=== PATIENT | male | born 1950 | race Caucasian/White ===

== ENCOUNTER 2021-06-08 11:52 | Outpatient (CLI) | payer MEDICARE, SELFPAY ==
[2021-06-08 13:47] LABS: Basophils Absolute Auto 0.1 K/mm3 (0.0-0.1); Basophils Percent Auto 1.1 % (0.2-1.2); Eosinophils Absolute Auto 0.2 K/mm3 (0-0.3); Eosinophils Percent Auto 2.1 % (0-4.4); Hematocrit 50.4 % (42.0-52.0); Hemoglobin 17.3 g/dL (14.0-18.0); Immature Granulocyte Absolute 0.03 K/mm3 (0.00-0.031); Immature Granulocyte Percent A 0.4 % (0-0.5); Lymphocytes Absolute Auto 2.46 K/mm3 (0.9-3.2); Lymphocytes Percent Auto 32.4 % (18.3-44.2); Mean Corpuscular HGB Conc 34.3 g/dl (32-36); Mean Corpuscular Hemoglobin 34.5 pg (26-34); Mean Corpuscular Volume 100.4 fl (80-100); Mean Platelet Volume 8.8 fl (7.4-10.4); Monocytes Absolute Auto 0.7 K/mm3 (0.1-0.6); Monocytes Percent Auto 9.2 % (2.6-8.5); Neutrophils Absolute Auto 4.2 K/mm3 (1.3-6.7); Neutrophils Percent Auto 54.8 % (45.5-73.1); Platelet Count Result 241 k/mm3 (150-375); Red Blood Count 5.02 M/mm3 (4.6-6.20); Red Cell Distribution Width 13.3 % (11.5-14.5); White Blood Count 7.6 K/mm3 (4.5-10.0)
[2021-06-08 14:16] LABS: INR 0.9; Prothrombin Time 11.9 Seconds (11.1-14.7)
[2021-06-08 14:17] LABS: Partial Thromboplastin Time 22.7 SECONDS (22.3-36.8)
== END 2021-06-08 11:53 | disposition home or self-care (01) ==
LOC: ANHSURGERY 12:06
PROVIDERS: PCP Internal Medicine; Visit Provider Urology
DX: Z01.818 Encounter for other preprocedural examination (principal); C61 Malignant neoplasm of prostate
CPT/HCPCS: 36415; 85025; 85610; 85730; 86850; 86900; 86901; 87086

== ENCOUNTER 2021-06-17 15:36 | Inpatient (IN) | payer MEDICARE, SELFPAY ==
[2021-06-08 12:32] VITALS: BP 154/87; PULSE 72; RESP 18; TEMP 36.8; O2SAT 95; BMI 28.9
--- NOTE | 2021-06-16 09:11 | WPDANESEPPF ---
Anes - Initial Pre Proc Eval Procedure: Operation Date: 06/17/21 07:30 Proposed Procedures p Robotic Prostatectomy with Bilateral Pelvic Lymph Node Dissection - Williams Arguello MD Date/Time: 06/16/21 09:11 Surgeon: Williams Arguello MD Pre Op Diagnosis: prostate CA Patient Data Age: 70 Gender: M Height: 1.7 m Weight: 83.7 kg Last Vital Signs Temp 36.8 C 06/08/21 12:32 Pulse 72 06/08/21 12:32 Resp 18 06/08/21 12:32 BP 154/87 H 06/08/21 12:32 Pulse Ox 95 06/08/21 12:32 Allergies Allergy/AdvReac Type Severity Reaction Status Date / Time penicillin G Allergy Intermediate Rash Verified 06/17/21 06:31 Home Medications Medication Instructions Recorded Confirmed Type allopurinol 100 mg PO DAILY 06/08/21 06/17/21 History aspirin [Aspir-81] 81 mg PO DAILY 06/08/21 06/17/21 History atorvastatin 20 mg PO HS 06/08/21 06/17/21 History carvedilol 3.125 mg PO BID 06/08/21 06/17/21 History cholecalciferol (vitamin D3) 50 mcg PO DAILY 06/08/21 06/17/21 History dapagliflozin [Farxiga] 10 mg PO QAM 06/08/21 06/17/21 History furosemide 20 mg PO QAM 06/08/21 06/17/21 History glimepiride 2 mg PO QAM 06/08/21 06/17/21 History lisinopril 40 mg PO QAM 06/08/21 06/17/21 History metformin 1,000 mg PO BID 06/08/21 06/17/21 History omega-3 fatty acids-vitamin E 1 cap PO DAILY 06/08/21 06/17/21 History [Fish Oil] tamsulosin 0.4 mg PO QAM 06/08/21 06/17/21 History vit C,W-Zz-iruit-lutein-zeaxan 1 tablet PO BID 06/08/21 06/17/21 History [PreserVision AREDS-2] vitamin E 1,000 unit PO DAILY 06/08/21 06/17/21 History Patient hx anesthesia problems: none Family hx anesthesia problems: none PMFSH Past Medical History Medical History (Updated 06/17/21 @ 06:47 by Aidan Pascual MD) Diabetes type 2, controlled Hyperlipidemia Hypertension Prostate CA Social History Social History Smoking status: Never smoker Alcohol intake: never Substance use: never Living arrangements: with family Additional living arrangements comments: Spiritual care concerns: No Anes - Eval Final PreProcedure Day of Procedure 06/16/21 09:11 Patient weight: overweight Heart: regular rate and rhythm Lungs: clear to auscultation and normal air movement Airway: Mallampati scale class II Neurological: alert and oriented Last oral intake: >/= 8 hours ASA classification: III Emergent: no Anesthetic plan: proceed Anesthesia type and monitoring: general ETT and standard monitoring Informed Consent: The patient's anesthetic plan and its attendant risks and benefits were discussed with the patient/family/POA. Questions were solicited and answers provided to the satisfaction of the patient/family/POA.
[2021-06-17] VITALS (20 sets, daily range): BP systolic 122–167; BP diastolic 69–90; PULSE 58–111; RESP 13–27; TEMP 35.9–36.7; O2SAT 94–100
--- NOTE | 2021-06-17 06:45 | PM.IMHP ---
H&P: HPI History of Present Illness Date/Time: 06/17/21 06:45 Pleasant 70-year-old gentleman who presented in January 2021 with PSA of 6.43. Prostate ultrasound and biopsy revealed a 35.8 g prostate with 7 of 12 cores demonstrating adenocarcinoma [place] 3+3=6 in 4+3=7. Staging CT scan of the abdomen and pelvis with contrast and bone scan showed no evidence of metastatic disease. consultation was undertaken and options including active surveillance, radiation therapy in its various forms, androgen deprivation therapy and radical prostatectomy were discussed. Patient elected for the latter is aware the risk including, but not limited to, adverse cardiopulmonary events, rectal injury, failure to control his cancer, urinary incontinence and erectile dysfunction. Chief Complaint: Prostate cancer Review of Systems Cardiovascular: Cardiovascular: Denies chest pain, Denies lightheadedness, Denies palpitations and Denies dyspnea Respiratory: Respiratory: Denies dyspnea Gastrointestinal: Gastrointestinal: Denies diarrhea, Denies nausea and Denies vomiting Genitourinary: Genitourinary: Denies hematuria and Denies dysuria Endocrine: Endocrine: Denies palpitations [facility] Past Medical History Medical History Diabetes type 2, controlled Hyperlipidemia Hypertension Prostate CA Social History Social History Smoking status: Never smoker Alcohol intake: never Substance use: never Living arrangements: with family Additional living arrangements comments: Spiritual care concerns: No Meds Home Medications and Allergies Home Medications Medication Instructions Recorded Confirmed Type allopurinol 100 mg PO DAILY 06/08/21 06/17/21 History aspirin [Aspir-81] 81 mg PO DAILY 06/08/21 06/17/21 History atorvastatin 20 mg PO HS 06/08/21 06/17/21 History carvedilol 3.125 mg PO BID 06/08/21 06/17/21 History cholecalciferol (vitamin D3) 50 mcg PO DAILY 06/08/21 06/17/21 History dapagliflozin [Farxiga] 10 mg PO QAM 06/08/21 06/17/21 History furosemide 20 mg PO QAM 06/08/21 06/17/21 History glimepiride 2 mg PO QAM 06/08/21 06/17/21 History lisinopril 40 mg PO QAM 06/08/21 06/17/21 History metformin 1,000 mg PO BID 06/08/21 06/17/21 History omega-3 fatty acids-vitamin E 1 cap PO DAILY 06/08/21 06/17/21 History [Fish Oil] tamsulosin 0.4 mg PO QAM 06/08/21 06/17/21 History vit C,E-Ph-cbgmn-lutein-zeaxan 1 tablet PO BID 06/08/21 06/17/21 History [PreserVision AREDS-2] vitamin E 1,000 unit PO DAILY 06/08/21 06/17/21 History Allergies Allergy/AdvReac Type Severity Reaction Status Date / Time penicillin G Allergy Intermediate Rash Verified 06/17/21 06:31 Exam Const: General: no acute distress Resp: Effort & Inspection: normal respiratory effort GI: Inspection: non-distended GI Palp: No abdominal tenderness and No Guarding due to palpation present (GI) Auscultation: normal bowel sounds Assessment and Plan Assessment and plan (1) Prostate cancer: Code(s): C61 - Malignant neoplasm of prostate Status: Acute Assessment and Plan: Robotic assisted laparoscopic radical prostatectomy with bilateral pelvic lymphadenectomy.
--- NOTE | 2021-06-17 06:48 | WPDHPUPDATE1 ---
History and Physical Update Update Date/Time: 06/17/21 06:48 History and Physical has been reviewed, including an updated exam of the patient. There are NO changes in the patient's condition. Risks, benefits, and alternatives have been discussed and questions answered. Patient agrees to proceed with procedure.
[2021-06-17 06:56] LABS: Glucose Point of Care 173 mg/dl (65-105)
[2021-06-17] MEDS: LACTATED RINGERS 1,000 ML 30 ML IV CONT ×3 (07:09→13:53)
[2021-06-17] MEDS: ceFAZolin 2 GM/D5W 50 ML 2 GM/50 ML BAG IVPB (07:23)
[2021-06-17] MEDS: ceFAZolin SODIUM 1 GM VIAL IV PUSH (11:19)
--- NOTE | 2021-06-17 11:30 | W.PM.PROC2 ---
Procedure Note - Detailed Date of Procedure 06/17/21 Pre-op Diagnosis Prostate CA Post-op Diagnosis same Procedure Performed Robotic-assisted, bilateral nerve-sparing radical prostatectomy, bilateral pelvic lymphadenectomy Surgeon Aidan Pascual MD Wood Treating Inspector Maya Arguello MD Anesthesia general Description of Procedure The patient was brought to the operative suite, where he was prepped and draped in routine sterile fashion while in a dorsal lithotomy, deep Trendelenburg position. A supraumbilical 10 mm trocar was placed after insufflation of the abdomen with a Veress needle. Three robotic ports were then placed under direct vision. Two of these were placed in the right lower quadrant - 10 cm and 20 cm lateral to, and in line with, the umbilicus. A third robotic trocar was placed 10 cm to the left of the umbilicus, and 20 cm to the left of the umbilicus, a 12 mm standard laparoscopic trocar was placed to be used as an life enrichment assistant port. Lastly, a 5 mm trocar was placed in the left upper quadrant midway between the umbilicus and the left robotic trocar. Attention was then turned to the prostatectomy. I opted for a posterior approach in this patient. An incision was made in the parietal peritoneum along the posterior bladder/posterior prostate about 2 cm above the reflection of the peritoneum over the anterior rectum. The seminal vesicles and vas deferens were immediately identified. Dissection is undertaken in a fashion so as to avoid electrocautery as much as possible, particularly near the tips of the seminal vesicles. Dissection was also carried out in the midline so as to avoid any encounters with the ureters. The vas deferens and the seminal vesicles were dissected in their entirety to the base of the prostate. The plane anterior to Denoviller's fascia, anterior to the rectum and posterior to the prostate was then developed. I then dropped the bladder by incising the anterior parietal peritoneum just lateral to the median umbilical ligaments bilaterally. The bladder was dropped from the anterior abdominal and pelvic wall. The endopelvic fascia was identified and incised bilaterally, allowing for dissection of the posterior-lateral aspect of the prostate. The puboprostatic ligaments were transected near their origin from the posterior pubic ramus. This posterior lateral dissection of the prostate is also undertaken in a fashion so as to avoid electrocautery as much as possible. The dorsal vein of the penis is then secured with an 0 -Vicryl ligature. Attention is then turned to the bladder neck. The anterior bladder neck is incised at the vesico-prostatic junction. The previously placed urethral catheter was drawn through the urethrotomy. A very small bladder neck was maintained throughout the remainder of this dissection. The posterior bladder neck was incised in a fashion so as to avoid any injury to the ureteral orifices. Again, the small aperture of the bladder neck was maintained. The previously dissected vas deferens and the seminal vesicles were brought through the posterior bladder neck incision. The lateral prostatic pedicles were then carefully dissected from the lateral aspect of the prostate bilaterally. The prostatic pedicles were secured with Weck clips and transected. The neurovascular bundles were carefully dissected from the posterior-lateral aspect of the prostate. The dorsal vein of the penis was incised with electrocautery. Using cold scissors, the urethra was incised. After withdrawing the previously placed urethral catheter, the posterior urethra was sharply incised, as was the rectourethralis muscle. Attention was then turned to an extended bilateral pelvic lymphadenectomy. The limits of this dissection were similar bilaterally. Specifically, the limits were the bifurcation of the common iliac vein proximally, the inguinal ligament distally, the obturator nerve posteriorly and the anterior aspect to the external iliac
[2021-06-17 13:09] LABS: Glucose Point of Care 277 mg/dl (65-105)
[2021-06-17] MEDS: fentaNYL CITRATE INJ (*CRX) 100 MCG/2 ML VIAL 25 MCG IV PUSH ×8 (13:12→13:26)
[2021-06-17] MEDS: HYDROmorphone HCL INJ (*CRX) 1 MG/ML SYR 0.5 MG IV PUSH ×3 (13:30→13:45)
[2021-06-17] MEDS: INSULIN HUMAN REGULAR (*BKC) 100 UNITS/ML SUB-Q (14:08)
--- NOTE | 2021-06-17 15:55 | ADMGEN ---
This patient, Constantine Gray, was admitted to 2 Medical Room 260-. Patient/family oriented to hospital policies and general routines including ID bracelet, bed and alarms, visiting hours, pain management, procedures, bathroom and other care routines, personal items, smoking policy, room service/diet, and visiting hours. Information on how to activate the Rapid Response Team has been discussed. Patient/Family are encouraged to report perceived risks to care and to ask questions if they do not understand what they are told or what they should do.
[2021-06-17] MEDS: LACTATED RINGERS 1,000 ML 125 ML IV CONT (15:59)
[2021-06-17] MEDS: INSULIN ASPART (*BKC) 100 UNITS/ML SUB-Q (16:05)
[2021-06-17] MEDS: metFORMIN HCL 500 MG TABLET 1000 MG PO (16:11)
[2021-06-17 17:02] LABS: Glucose Point of Care 232 mg/dl (65-105)
[2021-06-17] MEDS: KETOROLAC 15 MG/ML VIAL (*BKC) IV PUSH (21:24)
[2021-06-17] MEDS: carvediloL 3.125 MG TABLET PO (21:27)
[2021-06-17] MEDS: ATORVASTATIN 20 MG TABLET PO (21:28)
[2021-06-17 21:52] LABS: Glucose Point of Care 173 mg/dl (65-105)
[2021-06-18 01:00] VITALS: BP 121/59; PULSE 93; RESP 20; TEMP 36.1; O2SAT 93
[2021-06-18] MEDS: LACTATED RINGERS 1,000 ML 125 ML IV CONT ×2 (01:04→08:51)
[2021-06-18 04:09] VITALS: BP 129/68; PULSE 94; RESP 20; TEMP 37; O2SAT 95
[2021-06-18 06:06] LABS: Hematocrit 42.7 % (42.0-52.0); Hemoglobin 14.6 g/dL (14.0-18.0)
[2021-06-18 06:15] LABS: Anion Gap 5 mmol/L (8-16); Blood Urea Nitrogen 16 mg/dL (9-20); Calcium 8.7 mg/dL (8.4-10.2); Carbon Dioxide 23 mmol/L (22-30); Chloride 104 mmol/L (98-107); Estimated CRCL calculation 61 ml/min; Estimated Glomerular Filt Rate > 60; Glucose 166 mg/dL (65-110); Potassium 3.9 mmol/L (3.4-5.0); Sodium 132 mmol/L (137-145)
--- NOTE | 2021-06-18 06:32 | WPDUROPN2 ---
Progress Note: A&P Assessment and Plan (1) Prostate cancer: Code(s): C61 - Malignant neoplasm of prostate Status: Acute Assessment and Plan: Doing well POD #1 Increased diet/activity Likely home this afternoon Subjective Subjective Date/Time Seen: 06/18/21 06:32 Comfortable, tolerating solid food / no complaints Review of Systems Cardiovascular: Cardiovascular: Denies chest pain, Denies lightheadedness, Denies palpitations and Denies dyspnea Respiratory: Respiratory: Denies dyspnea Gastrointestinal: Gastrointestinal: Denies diarrhea, Denies nausea and Denies vomiting Genitourinary: Genitourinary: Denies hematuria and Denies dysuria Endocrine: Endocrine: Denies palpitations Exam Const: General: no acute distress Resp: Effort & Inspection: normal respiratory effort GI: Inspection: non-distended GI Palp: No abdominal tenderness and No Guarding due to palpation present (GI) Auscultation: normal bowel sounds Objective Data Vital Signs Vital Signs: Vital Signs - 24 hr 06/17/21 06:36 06/17/21 12:58 06/17/21 13:00 Temperature 97.2 F L Pulse Rate 72 58 L 60 Respiratory Rate 16 22 H 25 H Blood Pressure 148/82 H 152/77 H 153/78 H Pulse Oximetry 99 100 100 06/17/21 13:15 06/17/21 13:30 06/17/21 13:45 Temperature Pulse Rate 62 73 65 Respiratory Rate 27 H 17 20 Blood Pressure 151/78 H 153/72 H 167/79 H Pulse Oximetry 100 99 100 06/17/21 14:00 06/17/21 14:15 06/17/21 14:30 Temperature Pulse Rate 72 75 67 Respiratory Rate 17 17 13 Blood Pressure 149/81 H 130/71 125/77 Pulse Oximetry 98 99 99 06/17/21 14:45 06/17/21 15:00 06/17/21 15:13 Temperature Pulse Rate 73 69 74 Respiratory Rate 20 21 H 16 Blood Pressure 131/71 122/78 127/83 Pulse Oximetry 100 100 99 06/17/21 16:00 06/17/21 16:25 06/17/21 16:55 Temperature 97.5 F L 96.7 F L 96.9 F L Pulse Rate 88 92 99 Respiratory Rate 18 24 H 20 Blood Pressure 133/69 137/85 150/87 H Pulse Oximetry 97 99 98 06/17/21 17:25 06/17/21 17:55 06/17/21 20:51 Temperature 97.4 F L 98.1 F Pulse Rate 111 H 100 Respiratory Rate 16 20 Blood Pressure 138/90 132/74 Pulse Oximetry 97 97 94 06/17/21 21:27 06/17/21 21:30 06/18/21 01:00 Temperature 96.9 F L Pulse Rate 110 H 93 Respiratory Rate 20 Blood Pressure 121/59 L Pulse Oximetry 95 93 06/18/21 04:09 Temperature 98.6 F Pulse Rate 94 Respiratory Rate 20 Blood Pressure 129/68 Pulse Oximetry 95 Intake/Output Intake/Output: Intake & Output 06/15/21 06/16/21 06/17/21 06/18/21 23:59 23:59 23:59 23:59 Intake Total 1820 1490 Output Total 1400 Balance 1820 90 Meds/Results Medications: Active Medications Generic Name Dose Route Start Last Admin Trade Name Freq PRN Reason Stop Dose Admin Allopurinol 100 mg 06/18/21 09:00 Allopurinol 100 Mg Tablet PO DAILY FARTUN Atorvastatin Calcium 20 mg 06/17/21 21:00 06/17/21 21:28 Atorvastatin 20 Mg Tablet PO 20 mg HS FARTUN Administration Carvedilol 3.125 mg 06/17/21 21:00 06/17/21 21:27 Carvedilol 3.125 Mg Tablet PO 3.125 mg Q12HR FARTUN Administration Dextrose 12.5 gm 06/17/21 15:15 Dextrose 50% 25 Gm/50 Ml Syringe IV PUSH PRN PRN Hypoglycemia Protocol Furosemide 20 mg 06/18/21 09:00 Furosemide 20 Mg Tablet PO QAM FARTUN Glimepiride 2 mg 06/18/21 08:00 Glimepiride 2 Mg Tablet PO DAILY@0800 FARTUN Glucagon 1 mg 06/17/21 15:15 Glucagon For Inj 1 Mg Vial IM PRN PRN Hypoglycemia Protocol Glucose 15 gm 06/17/21 15:15 Glucose Oral Gel 15 Gm Of Glucse In 37.5 Gm Tube PO PRN PRN Hypoglycemia Protocol Hyoscyamine 0.125 mg 06/17/21 15:15 Hyoscyamine Sulfate 0.125 Mg Tablet SUBLINGUAL Q4H PRN Bladder Spasm Lactated Ringer's 1,000 mls @ 125 mls/hr 06/17/21 15:15 06/18/21 01:04 Lr - Lactated Ringers Iv IV CONT 125 mls/hr .Q8H FARTUN Administration Acetamin
[2021-06-18 07:42] LABS: Glucose Point of Care 195 mg/dl (65-105)
[2021-06-18] MEDS: GLIMEPIRIDE 2 MG TABLET PO (08:14)
[2021-06-18 08:15] VITALS: PULSE 92
[2021-06-18] MEDS: carvediloL 3.125 MG TABLET PO (08:15)
[2021-06-18] MEDS: allopurinoL 100 MG TABLET PO (08:15)
[2021-06-18] MEDS: FUROSEMIDE 20 MG TABLET PO (08:15)
[2021-06-18] MEDS: levoFLOXacin 500 MG TABLET PO (08:15)
[2021-06-18] MEDS: lisinopriL 20 MG TABLET 40 MG PO (08:15)
[2021-06-18 08:16] VITALS: PULSE 92; RESP 18; O2SAT 96
[2021-06-18] MEDS: metFORMIN HCL 500 MG TABLET 1000 MG PO (08:16)
[2021-06-18 08:27] VITALS: BP 124/67; PULSE 92; RESP 18; TEMP 35.8; O2SAT 96
[2021-06-18] MEDS: KETOROLAC 15 MG/ML VIAL (*BKC) IV PUSH (08:52)
--- NOTE | 2021-06-18 10:55 | WPDANESPN ---
Anes - Prog Note Post-Op Date/Time: 06/18/21 10:55 Cardiovascular status: normal Respiratory status: normal Airway patency: baseline Mental status: baseline Post-Op hydration status: normal Vital Signs: Last Vital Signs Temp 35.8 C L 06/18/21 08:27 Pulse 92 06/18/21 08:27 Resp 18 06/18/21 08:27 BP 124/67 06/18/21 08:27 Pulse Ox 96 06/18/21 08:27 Pain Score (VAS): no c/o pain I/O: Intake & Output 06/17/21 06/18/21 06/18/21 23:59 07:59 15:59 Intake Total 220 1490 1240 Output Total 1400 1100 Balance 220 90 140 Laboratory Tests 06/18/21 05:18 06/18/21 05:18 06/17/21 06/17/21 06/17/21 13:07 15:57 21:47 Hgb Hct Sodium Potassium Chloride Carbon Dioxide Anion Gap BUN Creatinine Estim Creat Clear Calc Estimated GFR Glucose POC Capillary Glucose 277 H 232 H 173 H Calcium 06/18/21 06/18/21 06/18/21 05:18 05:18 07:37 Hgb 14.6 Hct 42.7 Sodium 132 L Potassium 3.9 Chloride 104 Carbon Dioxide 23 Anion Gap 5 L BUN 16 Creatinine 0.90 Estim Creat Clear Calc 61 Estimated GFR > 60 Glucose 166 H POC Capillary Glucose 195 H Calcium 8.7 Post-procedural complaints: none Patient Feedback: Patient satisfied with anesthetic care.
[2021-06-18 11:51] LABS: Glucose Point of Care 198 mg/dl (65-105)
--- NOTE | 2021-06-18 12:47 | PM.DS ---
DS: Admitting Diagnosis Admitting Diagnosis Prostate cancer DS: Discharge Diagnosis Discharge Diagnosis (1) Prostate cancer: Code(s): C61 - Malignant neoplasm of prostate Status: Acute DS: Summary Hospital Course Hospital Course: This patient was admitted on the morning of his planned robotic prostatectomy. This procedure was uneventful, as was his postoperative course. By the evening of the procedure he was sitting at the bedside in tolerating a liquid diet. The following morning he was ambulating freely and tolerating regular food. His catheter drainage remained essentially clear throughout. His postoperative hemoglobin and serum creatinine were unremarkable. At the time of discharge he has been instructed in appropriate care for his Lerner catheter with both a leg bag and bedside bag. He will be discharged with plans to follow-up in 1 week with a cystogram. Time Spent with Patient Time attestation: Total time spent providing and/or coordinating discharge services: 15 min Exam Const: General: no acute distress Resp: Effort & Inspection: normal respiratory effort GI: Inspection: non-distended GI Palp: No abdominal tenderness and No Guarding due to palpation present (GI) Auscultation: normal bowel sounds DS: Data Data Completed and Pending Pending studies at discharge: Pending at discharge 06/17/21 09:27 Surgical [PTH] Routine Surgical [PTH] Routine Labs on day of discharge: Labs from last 24 hours 06/18/21 06/18/21 06/18/21 11:44 07:37 05:18 Hgb Hct Sodium 132 L Potassium 3.9 Chloride 104 Carbon Dioxide 23 Anion Gap 5 L BUN 16 Creatinine 0.90 Estim Creat Clear Calc 61 Estimated GFR > 60 Glucose 166 H POC Capillary Glucose 198 H 195 H Calcium 8.7 06/18/21 06/17/21 06/17/21 05:18 21:47 15:57 Hgb 14.6 Hct 42.7 Sodium Potassium Chloride Carbon Dioxide Anion Gap BUN Creatinine Estim Creat Clear Calc Estimated GFR Glucose POC Capillary Glucose 173 H 232 H Calcium 06/17/21 13:07 Hgb Hct Sodium Potassium Chloride Carbon Dioxide Anion Gap BUN Creatinine Estim Creat Clear Calc Estimated GFR Glucose POC Capillary Glucose 277 H Calcium Discharge Plan Discharge Attending physician on discharge: Aidan Pascual Discharging Clinician: Aidan Pascual Patient Disposition: Home, Self-Care Activity: other - see discharge instructions Diet: other - see discharge instructions Discharge Instructions: 1) Lerner catheter -> leg bag / bedside bag at night. 2) No lifting/straining >15lbs. x3 weeks. 3) No driving x1-week. 4) Resume normal, pre-operative diet. 5) My office will contact regarding follow-up in 1-week with cystogram. Patient Instructions: Lerner Catheter Placement and Care (DC), Urinary Leg Bag (GEN) Stand Alone Forms: General Discharge Instructions Follow-up/Referrals: Aidan Pascual MD [Physician] - Discharge Medications: New hydrocodone-acetaminophen 5-325 mg tablet 1 - 2 tablet PO Q6H PRN (Reason: pain) Qty: 30 RF: 0 ciprofloxacin HCl 500 mg tablet 500 mg PO Q12H Qty: 10 RF: 0 hyoscyamine sulfate 0.125 mg tablet 0.125 mg PO Q6H PRN (Reason: bladder spasms) Qty: 20 RF: 2 docusate sodium [Colace] 100 mg capsule 100 mg PO DAILY Qty: 30 RF: 0 Continued atorvastatin 20 mg tablet 20 mg PO HS RF: 0 allopurinol 100 mg tablet 100 mg PO DAILY RF: 0 glimepiride 2 mg tablet 2 mg PO QAM RF: 0 carvedilol 3.125 mg tablet 3.125 mg PO BID RF: 0 metformin 1,000 mg tablet 1,000 mg PO BID RF: 0 furosemide 20 mg tablet 20 mg PO QAM RF: 0 lisinopril 40 mg tablet 40 mg PO QAM RF: 0 Farxiga 10 mg Tablet 10 mg PO QAM RF: 0 vitamin E 1,000 unit Capsule 1,000 unit PO DAILY RF: 0 cholecalciferol (vitamin D3) 50 mcg (2,000 unit) Tablet 50
[2021-06-18 13:00] VITALS: BP 139/68; PULSE 93; RESP 18; TEMP 35.9; O2SAT 95
== END 2021-06-18 14:05 | disposition home or self-care (01) | DRG 708 ==
LOC: ANH2MED 15:42
PROVIDERS: Admitting Provider Urology; PCP Internal Medicine; Visit Provider Urology
PROC: 0VT04ZZ Resection of Prostate, Percutaneous Endoscopic Approach (ICD-10-PCS; CPT 55867; principal; 2021-06-17 07:30)
DX: C61 Malignant neoplasm of prostate (principal); E11.9 Type 2 diabetes mellitus without complications; I10 Essential (primary) hypertension; E78.5 Hyperlipidemia, unspecified; Z79.84 Long term (current) use of oral hypoglycemic drugs; Z79.899 Other long term (current) drug therapy
CPT/HCPCS: 36415; 80048; 82948; 85014; 85018; 88305; 88307; 88309; A9270; J0131; J0690; J1100; J1170; J1815; J1885; J2250; J2405; J2704; J2710; J3010; J7030; J7120; Q9968

== ENCOUNTER 2021-06-25 12:27 | Outpatient (CLI) | payer MEDICARE, SELFPAY ==
--- NOTE | ~2021-06-25 | XR_ITS ---
EXAMINATION: XR cystogram EXAM DATE: 06/25/2021 13:16 INDICATION: Prostatectomy for prostate cancer. TECHNIQUE: Fluoroscopic guidance used during cystogram performed by Dr. Armando Otero, radiologist, thr [facility] Lerner catheter in place on patient arrival. An Omnipaque 350/saline solution was used and allowe d to infuse through the Lerner catheter under gravity. Breast Splitter image, fluoroscopic images and postevacua tion image were obtained. Total fluoroscopic time of 0.2 minutes. The DAP for this procedure was 11 mGym2. A total of 20 images obtained for the exam. There are no prior studies for comparison. FINDINGS: Breast Splitter image is unremarkable. Patient tolerated approximately 150 milliliters of distention. Upon administering contrast, small blush of extra luminal contrast identified along the right side of the prostatectomy bed. This finding has been indicated, marked on the examination for review, clinic al correlation. Contrast leaked around the Lerner catheter tube. No evidence of peritoneal contrast. N o ureteral reflux. IMPRESSION: Small region of contrast extravasation. Reviewed, dictated and finalized at location A.
== END 2021-06-25 12:28 | disposition home or self-care (01) ==
LOC: ANHIMG 12:29
PROVIDERS: PCP Internal Medicine; Visit Provider Urology
DX: C61 Malignant neoplasm of prostate (principal)
CPT/HCPCS: 51600; 74430; Q9967

== ENCOUNTER 2023-03-09 09:40 | Outpatient (CLI) | payer MEDICARE, SELFPAY ==
--- NOTE | ~2023-03-09 | MR_ITS ---
MRI of the lumbar spine Clinical History: Spinal stenosis Technique: Axial T2-weighted images, and sagittal T1-weighted, T2-weighted, and T2 fat-sat images wer e acquired. Findings: There is no acute fracture the lumbar spine. Mild chronic anterior wedging deformity of L1 noted. 5 mm anterolisthesis of L4 over L5 present. No suspicious bone marrow signal abnormality seen. At L1-L2, there is mild diffuse disc bulge and minimal facet hypertrophy. No spinal canal stenosis or definite neural foraminal narrowing. At L2-L3, there is minimal disc bulge with minimal facet arthropathy. There is left lateral recess st enosis. There is mild left neural foraminal narrowing. Right neural foramen preserved. At L3-L4, disc bulge and facet arthropathy result in moderate to severe thecal sac compression/spinal canal stenosis. There is severe right neural foraminal narrowing. There is mild left neural foramina l narrowing. At L4-L5, there is diffuse disc bulge with probable superimposed disc extrusion extending superiorly. There is facet arthropathy which also contributes to severe thecal sac compression/spinal canal sten osis. There is moderate to severe bilateral neural foraminal narrowing. At L5-S1, there is advanced degenerative disc narrowing with minimal disc bulge. There is mild facet arthropathy. No spinal canal stenosis. There is severe right neural foraminal narrowing and moderate left neural foraminal narrowing. Paravertebral soft tissues are unremarkable. IMPRESSION: Severe degenerative spondylosis at L4-L5, as detailed above. Severe degenerative spondylosis at L3-L4, as above. Moderate degenerative spondylosis at L5-S1. [id number] degenerative spondylosis at L2-L3, as detailed above. 5 mm anterolisthesis of L4 over L5. Reviewed, dictated and finalized at [facility]. IMPRESSION: Severe degenerative spondylosis at L4-L5, as detailed above. Severe degenerative spondylosis at L3-L4, as above. Moderate degenerative spondylosis at L5-S1. [id number] degenerative spondylosis at L2-L3, as detailed above. 5 mm anterolisthesis of L4 over L5.
== END 2023-03-09 09:41 | disposition home or self-care (01) ==
PROVIDERS: PCP Internal Medicine; Visit Provider Internal Medicine
DX: M47.817 Spondylosis without myelopathy or radiculopathy, lumbosacral region (principal); M43.16 Spondylolisthesis, lumbar region
CPT/HCPCS: 72148